=== PATIENT | male | born 1995 | race Caucasian/White ===

== ENCOUNTER 2020-11-22 16:14 | Emergency (ER) | payer BC ==
[~2020-11-22 16:14] MED LIST: BACTRIM DS TAB1 EACH PO; KEFLEX500 MG PO; NORCO 5-325 TA1 EACH PO
[2020-11-22 19:28] LABS: HEMOGLOBIN 16.5 gm/dl (14.0-17.5); RED BLOOD COUNT 5.37 M/UL (4.20-5.50); WHITE BLOOD COUNT 12.3 K/UL (4.5-11.0)
[2020-11-22 19:59] LABS: BUN/CREATININE RATIO 12 (0-10)
[2020-11-22] MEDS ORDERED: XYLOCAINE VISC100 ML EXT (20:07)
[2020-11-22] MEDS ORDERED: AUGMENTIN 875-1 EACH PO (20:07)
[2020-11-24] MEDS ORDERED: MYCOSTATIN100000 UTS PO (12:31)
== END 2020-11-22 20:13 | disposition home or self-care (01) ==
LOC: ER1 16:14
PROVIDERS: Physician Assistant
DX: J03.90 Acute tonsillitis, unspecified (principal); Z20.822 Contact with and (suspected) exposure to COVID-19
CPT/HCPCS: 70491; 80053; 85025; 99284; Q9967; U0002

== ENCOUNTER → 2020-11-24 | Day surgery (SDC) | payer BC ==
[~2020-11-24] MED LIST changes: +AUGMENTIN 875-1 EACH PO; +MYCOSTATIN100000 UTS PO; +XYLOCAINE VISC100 ML EXT
== END | disposition home or self-care (01) ==
LOC: OR 11-23 12:00
DX: K29.50 Unspecified chronic gastritis without bleeding (principal); K21.00 Gastro-esophageal reflux disease with esophagitis, without bleeding; E66.3 Overweight; Z20.822 Contact with and (suspected) exposure to COVID-19; K21.9 Gastro-esophageal reflux disease without esophagitis; B37.81 Candidal esophagitis
CPT/HCPCS: J2001; J2250; J2704; J7040